=== PATIENT | male | born 1990 | race Caucasian/White ===

== ENCOUNTER 2019-03-12 14:01 | Emergency (ER) | payer BC | END 2019-03-12 15:15 | disposition home or self-care (01) | LOC: JER 14:01 → JERFT 15:15 ==

== ENCOUNTER 2019-05-06 23:16 | Emergency (ER) | payer BC ==
--- NOTE | 2019-05-06 23:50 | PDOC ---
History of Present Illness - General Chief Complaint: Sore Throat Stated Complaint: SORE THROAT Time Seen by Provider: 05/06/19 23:24 - History of Present Illness Initial Comments: 05/06/19 23:46 CHIEF COMPLAINT: sore throat HISTORY OF PRESENT ILLNESS: 28 yo M with hx of asthma presents to ED with sore throat x 1 week. Patient denies sore throat, runny, cough, fever, nausea, vomiting, diarrhea. Patient just reports "soreness" to his throat. Patient has not taken any medication for the discomfort. Patient reports waking up with a stuffy nose in the mornings but otherwise no URI symptoms. No recent travel or sick contacts. PAST MEDICAL HISTORY: asthma FAMILY HISTORY: Denies SOCIAL HISTORY: Denies tobacco, alcohol, illicit drug use. SURGICAL HISTORY: Denies ALLERGIES: peanut REVIEW OF SYSTEMS General/Constitutional: Denies fever or chills. Denies weakness, weight change. HEENT: Sore throat. Denies change in vision. Denies ear pain or discharge. Cardiovascular: Denies chest pain or shortness of breath. Respiratory: Denies cough, wheezing, or hemoptysis. Gastrointestinal: Denies nausea, vomiting, diarrhea or constipation. Denies rectal bleeding. Genitourinary: Denies dysuria, frequency, or change in urination. Musculoskeletal: Denies joint or muscle swelling or pain. Denies neck or back pain. Skin and breasts: Denies rash or easy bruising. Neurologic: Denies headache, vertigo, loss of consciousness, or loss of sensation. PHYSICAL EXAM General Appearance: Well-appearing, appropriately dressed. No apparent distress. HEENT: EOMI, PERRLA, normal ENT inspection, normal voice, TMs normal, pharynx normal. No conjunctival pallor. No photophobia, scleral icterus. Neck: Supple. Trachea midline. No tenderness, rigidity, carotid bruit, stridor , lymphadenopathy, or thyromegaly. Respiratory/Chest: Lungs CTAB. No shortness of breath, chest tenderness, respiratory distress, accessory muscle use. No crackles, rales, rhonchi, stridor , wheezing, dullness Cardiovascular: RRR. S1, S2. No JVD, murmur, bradycardia, tachycardia. Vascular Pulses: Dorsalis-Pedis (R): 2+, Dorsalis-Pedis (L): 2+ Gastrointestinal/Abdominal: Normal bowel sounds. Abdomen soft, non-distended. No tenderness or rebound tenderness. No organomegaly, pulsatile mass, guarding , hernia, hepatomegaly, splenomegaly. Lymphatic: No adenopathy, tenderness. Musculoskeletal/Extremities: Normal inspection. FROM of all extremities, normal capillary refill. Pelvis Stable. No CVA tenderness. No tenderness to extremities, pedal edema, swelling, erythema or deformity. Integumentary: Appropriate color, dry, warm. No cyanosis, erythema, jaundice or rash Neurologic: train controller II-XII intact. Fully oriented, alert. Appropriate mood/affect. Motor strength 5/5. No appreciable EOM palsy, facial droop or sensory deficit. Past History - Past Medical History Allergies/Adverse Reactions: Allergies Allergy/AdvReac Type Severity Reaction Status Date / Time peanut Allergy Verified 05/06/19 23:23 Home Medications: Ambulatory Orders Ibuprofen 800 mg PO Q8H PRN #20 tablet 03/12/19 Loratadine 10 mg PO DAILY #14 tab.rapdis 05/07/19 COPD: No - Suicide/Smoking/Psychosocial Hx Smoking Status: Yes Smoking History: Never smoked Have you smoked in the past 12 months: No Number of Cigarettes Smoked Daily: 4 Information on smoking cessation initiated: No Hx Alcohol Use: No Drug/Substance Use Hx: No Substance Use Type: None Hx Substance Use Treatment: No *Physical Exam - Vital Signs Last Vital Signs Temp Pulse Resp BP Pulse Ox 97.6 F 87 20 143/87 97 05/06/19 23:24 05/06/19 23:24 05/06/19 23:24 05/06/19 23:24 05/06/19 23:24 Medical Decision Making - Medical Decision Making 05/06/19 23:49 28 yo M with hx of asthma presents to ED with sore throat x 1 week. -rapid strep strep negative decadron IM antihistamines f/u with ENT *DC/Admit/Observation/Transfer Diagnosis at time of Disposition: Sore throat - Discharge Dispostion Disposition: HOME Condition at time of disposition: Stable Decision to Admit order: No - Prescriptions Prescriptions: Loratadine 10 mg PO DAILY #14 tab.rapdis - Referrals - Patient Instructions Printed Discharge Instructions: Sore Throat - Post Discharge Activity
[2019-05-06 23:53] VITALS: BP 143/87; PULSE 87; TEMP 97.6; BMI 37.4
[2019-05-07] MEDS ORDERED: DEXAMETHASONE SOD PHOSPHATE 10 MG/1 ML VIAL IM ONE (00:14)
[2019-05-07] MEDS ORDERED: DEXAMETHASONE SOD PHOSPHATE 10 MG/1 ML VIAL ONE (00:21)
== END 2019-05-07 00:36 | disposition home or self-care (01) ==
LOC: JER 23:16
PROC: 3E023GC Introduction of Other Therapeutic Substance into Muscle, Percutaneous Approach (ICD-10-PCS; principal; 2019-05-06)
DX: J02.9 Acute pharyngitis, unspecified (principal)
CPT/HCPCS: 87070; 87077; 87880; 99281-25; J1100

== ENCOUNTER 2019-09-06 06:08 | Day surgery (SDC) | payer BC ==
[2019-09-05 16:10] VITALS: BMI 40.4
--- NOTE | 2019-09-05 18:23 | PREOP ---
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 HISTORY OF PRESENT ILLNESS: This 29-year-old male has had a raspy voice for over one year. It is worsened by voice use and improved with voice rest. He has an associated cough, heartburn, odynophagia and sore throat. He has been avoiding acidic foods and has lost weight. This is aggravated by an episode of bronchitis after which he became hoarse and had trouble speaking for about one month. In April, he had strep throat treated with amoxicillin. He had had a polyp identified on the vocal cords [place] [address] Maciel. More recently, he has undergone videostroboscopy demonstrating a right-sided vocal polyp anteriorly which affects closure on phonation. There were no other lesions identified. In addition, his exam demonstrates nasal polyps and he was found on CT scan to have chronic ethmoid and maxillary sinusitis. There are associated chronic sinus symptoms. He is now admitted for microlaryngoscopy with excision of laryngeal polyp as well as endoscopic sinus surgery and nasal polypectomy with image guidance. PRIMARY Care Provider: Zenobia Tej. PAST MEDICAL HISTORY: He had a medical evaluation which demonstrated a low white blood cell count and he has been evaluated by hematology. PAST SURGICAL HISTORY: Negative except for dental extractions. He has not had general anesthesia although he may have had IV sedation in the past. BLEEDING HISTORY: Negative. FAMILY HISTORY: Negative for bleeding problems. His mother did have anesthesia problems with postoperative vomiting. Family history is also significant for allergies. ALLERGIES TO MEDICATIONS: None known. SOCIAL HISTORY: He does not smoke. CURRENT MEDICATIONS: 1. Fluticasone nasal spray. 2. Omeprazole. PHYSICAL EXAMINATION: GENERAL: The patient is an obese male in no distress. HEENT AND NECK: Head is normal. Eyes are clear. Ears are unremarkable. The nose demonstrates bilateral nasal polyps. The vocal cords show a polyp on the right side which is round and red anteriorly. Vocal cord mobility is good. DATA: Preoperative labs are pending. A CT scan of the paranasal sinuses performed at [facility] on July 25, 2019 shows chronic sinusitis involving the ethmoid cells as well as maxillary sinus disease. There is thickening of the left sphenoethmoid recess. Nasal polyps are demonstrated. There is deformity of the right medial orbital wall consistent with a chronic fracture. There is an incidental small arachnoid cyst found in the right temporal lobe measuring 2.3 x 1.4 cm. IMPRESSION: Vocal polyp with dysphonia, nasal polyps and chronic sinusitis. PLAN: Microlaryngoscopy with excision of vocal polyp, endoscopic sinus surgery to address the ethmoid maxillary sinuses with nasal polypectomy with image guidance. INFORMED CONSENT: The patient and his mother understand the indications, alternatives, nature of the risks and benefits of the proposed surgery, potential complications, including but not limited to anesthesia, bleeding, infection, recurrence of the vocal polyp or nasal polyps, numbness, reduced smell sense, eye injury or brain injury as well as continued or recurrent hoarseness. These were discussed in detail. He understands and accepts these risks and wishes to proceed with surgery. Questions were answered fully. FARHEEN FIGUEROA M.D. [id number] MTDD
[2019-09-06] MEDS ORDERED: LIDOCAINE 1%-EPI 1:100,000 30 ML MDV IJ ONE (07:12)
--- NOTE | 2019-09-06 08:02 | HP ---
History & Physical Update - History History: No Change - Physical Physical: No Change - Assessment Assessment: No Change - Plan Currently as noted:: laser not available today because of equipment issue reported 09-05-19
[2019-09-06] MEDS ORDERED: MIDAZOLAM HCL 2 MG/2 ML SINGLE DOSE VIAL ONE (08:03)
[2019-09-06] MEDS ORDERED: LIDOCAINE HCL/PF 2% SDV 5ML VIAL ONE (08:09)
[2019-09-06] MEDS ORDERED: fentaNYL CITRATE 250 MCG/5 ML VIAL ONE (08:10)
[2019-09-06] MEDS ORDERED: PROPOFOL 20 ML ONE ×2 (08:11)
[2019-09-06] MEDS ORDERED: ROCURONIUM BROMIDE 50 MG/5 ML SYRINGE ONE ×2 (08:13→08:51)
[2019-09-06] MEDS ORDERED: COCAINE HCL 4% TOPICAL SOLUTION 4 ML BOTTLE TP ONE ×2 (08:19→08:30)
[2019-09-06] MEDS ORDERED: DEXAMETHASONE SOD PHOSPHATE 4 MG/1 ML VIAL ONE (08:36)
[2019-09-06] MEDS ORDERED: LIDOCAINE 1%/EPI 1:100000 (20 ML MULTI DOSE VIAL) INF ONE ×2 (09:21)
[2019-09-06] MEDS ORDERED: NEOSTIGMINE METHYLSULFATE 0.5 MG/ML - 10 ML MDV ONE (09:28)
[2019-09-06] MEDS ORDERED: GLYCOPYRROLATE 0.2 MG/1 ML VIAL ONE (09:28)
[2019-09-06] MEDS ORDERED: PHENYLEPHRINE HCL 10 MG/1 ML SINGLE DOSE VIAL ONE (09:38)
[2019-09-06] MEDS ORDERED: BACITRACIN 15 GM TUBE TOPICAL OINTMENT ONE (09:48)
[2019-09-06] MEDS ORDERED: IBUPROFEN 800 MG/8 ML IJ IVPB PRN (10:24)
[2019-09-06] MEDS ORDERED: oxyCODONE HCL 5 MG TABLET PO PRN (10:24)
[2019-09-06] MEDS ORDERED: ACETAMINOPHEN 1000 MG/100 ML VIAL (NON FORMULARY) IVPB ONE ×2 (10:24→10:35)
[2019-09-06] MEDS ORDERED: ONDANSETRON 4 MG/2 ML VIAL IVPUSH PRN (10:24)
[2019-09-06] MEDS ORDERED: LACTATED RINGERS SOLUTION 1,000 ML IV SCH ×2 (10:30)
--- NOTE | 2019-09-06 10:35 | OP ---
Operative Note - Note: Operative Date: 09/06/19 ([id number]) Pre-Operative Diagnosis: vocal cord polyp; chronic ethmoid and maxillary sinusitis with polyps, inferior turbinate hypertrophy Operation: microlaryngoscopy with excision of right vocal cord polyp; bilateral endoscopic ethmoidectomy, anterior and posterior; bilateral endoscopic maxillary antrostomy; bilateral nasal polypectomy, bilateral inferior turbinate therapeutic outfracture and mural cauterization, image guidance Findings: right anterior vocal cord polyp, anterior 1/3, medial surface both cords with changes of chronic laryngitis bilateral nasal polyps, primarily from middle turbinates chronic ethmoid and maxillary sinusitis right lamina papyracea very thin, small defect identified, which was left undisturbed Implants: none Post-Operative Diagnosis: Same as Pre-op Surgeon: Alok Edouard Network Support Technician: Mel Ballard Anesthesia: General Specimens Removed: 1. right vocal cord polyp 2. left nasal polyp and ethmoid tissue, 3. right nasal polyp and ethmoid tissue, 4. right and left ethmoid tissue Estimated Blood Loss (mls): 10 Drains & Tubes with Location: none Blood Volume Replaced (mls): 0 Operative Report Dictated: Yes
--- NOTE | 2019-09-06 10:55 | PN ---
Progress Note (short form) - Note Progress Note: postop check in PACU pt arousable, conversant, mother at bedside pt reports his nasal breathing feels "strong", better EOMI good nasal airflow, no bleeding no stridor or respiratory distress Impression: stable after microlaryngoscopy with excision of nasal polyp, endoscopic sinus surgery, inferior turbinate surgery Plan: continue PACU care to [facility] after discharge home today when meets discharge criteria discussed postop care briefly, take meds, f/u in office 5-6 days as scheduled advised to call office with any questions or concerns. \\ Alok Edouard MD FACS
[2019-09-06] MEDS ORDERED: IBUPROFEN 800 MG/8 ML IJ IVPB ONE ×2 (12:13→12:17)
[2019-09-06 15:00] VITALS: BP 127/87; PULSE 86; TEMP 97.4
--- NOTE | 2019-09-06 18:31 | OP ---
DATE OF OPERATION: 09/06/2019 PREOPERATIVE DIAGNOSIS: Vocal cord polyp, chronic ethmoid and maxillary sinusitis with polyps, inferior turbinate hypertrophy. POSTOPERATIVE DIAGNOSIS: Vocal cord polyp, chronic ethmoid and maxillary sinusitis with polyps, inferior turbinate hypertrophy. PROCEDURE PERFORMED: Suspension microlaryngoscopy with excision of right vocal cord polyp, bilateral endoscopic ethmoidectomy anteriorly and posteriorly, bilateral endoscopic maxillary antrostomy, bilateral nasal polypectomy, bilateral inferior turbinate therapeutic outfracture and mirror cauterization, image guidance. SURGEON: Alok Edouard MD ANESTHESIOLOGIST: Mel Ballard M.D. ANESTHESIA: General via endotracheal tube. INDICATIONS: This 29-year-old male has had history of at least 1 year of hoarseness. He does like to sing and often does karaoke. A vocal cord polyp had been identified approximately 1 year ago, and he has had persistent symptoms since. Recent laryngoscopy demonstrates a small round polyp of the right anterior vocal cord, which intermittently becomes insinuated between the vocal cords upon phonation. In addition, the patient has had bilateral nasal polyps identified. CT scan demonstrates nasal polyps as well as chronic ethmoid and maxillary sinusitis. Inferior turbinate hypertrophy, which is primary soft tissue, is also seen. He is now brought to surgery for treatment. FINDINGS: Right vocal cord polyp, based on the medial surface of the anterior 1/3rd of the right true vocal fold. Both cords had some mucosal changes of chronic laryngitis. Bilateral nasal polyps primarily emanating from the middle turbinates, chronic ethmoid sinusitis and obstruction of the ostiomeatal unit. The right lamina papyracea was very thin with a small defect identified, which was left undisturbed. DESCRIPTION OF PROCEDURE: The patient was brought to the operating room and placed on the operating table in the supine position. General endotracheal anesthesia was induced to a satisfactory level. He was prepped and draped in the usual fashion for surgery. After an appropriate time-out, the table was rotated in preparation for microlaryngoscopy. The upper dentition was protected and a Pilling laryngoscope was passed. The vallecula and the epiglottis were normal. The endolarynx showed normal aryepiglottic folds. There was fullness of the false vocal folds. There were changes of chronic laryngitis in the true vocal folds. A small round polyp was identified near the anterior commissure. Under microscopy, the polyp was manipulated and found to be attached to the medial surface of the right anterior vocal fold in its anterior 1/3rd. This was grasped with the up-biting cup forceps. Microlaryngoscopic scissors were then used to I this along the border of the true vocal fold. This was cleanly excised and sent to Pathology for routine studies. There was minimal oozing. Topical cocaine was applied and excellent hemostasis was achieved. After assuring hemostasis, the pledget was removed. Examination demonstrated excellent symmetry of the vocal folds. The laryngoscope was removed. The upper dentition remained intact. The table was then repositioned, and the patient was prepped and draped for endoscopic sinus surgery. Cocaine 4% was placed topically within the nasal cavities. The patient's CT scan was uploaded into the [employer] System. The patient was registered, and this was used during the case to identify landmarks and guide dissection. After the pledgets were removed, bilateral nasal endoscopy was performed. Bilateral nasal polyps were found in the region of the middle meatus and the middle tuberculosis. Inferior turbinates were enlarged. There was mild septal deviation, which did not require treatment. There was also swelling of the adenoid tissue. Lidocaine 1% with epinephrine 1:100,000 was infiltrated into the visible nasal polyps and lateral nasal scanlon. Additional cocaine 4% was placed within the middle meati. After an adequate time for vasoconstriction, the left paranasal sinus was addressed. Anterior nasal polyps were removed with forceps. These appeared to be coming primarily from the middle turbinate. Additional markedly polypoid tissue was then removed from the middle turbinate using the [employer] microdebrider. The bony middle turbinate was preserved. The middle meatus could be better seen. The uncinate process was drawn forward with the ball-tip seeker, which also identified the natural ostium of the maxillary sinus. The uncinate process was removed. The ethmoid bulla was then opened, and then anterior and then posterior ethmoidectomy was performed using the ethmoid forceps and the [employer] microdebrider. The lamina papyracea and the fovea ethmoidalis were preserved. Hemostasis was excellent. Attention was then turned toward the right paranasal sinuses. Similar nasal polyps were found and removed with forceps. These also appeared to be primarily based upon the right middle turbinate, which was then shaved with the microdebrider and the baseline bony right middle turbinate was preserved. The uncinate process was identified, drawn forward with the ball-tip seeker and removed with the up-biting forceps. The natural ostium of the maxillary sinus was identified and slightly enlarged. There was no pus or polyp. Anterior ethmoidectomy was then performed with the ethmoid forceps and [employer] microdebrider. The posterior ethmoid was also opened. A very thin lamina papyracea was encountered on the right side, and a small defect was identified. A few millimeter area of orbital fat was observed. This was left undisturbed. Final inspection demonstrated middle turbinates and excellent hemostasis. Minor cauterization was performed of the middle turbinates. The inferior turbinates were very large. Therapeutic outfracture was performed with a [place] elevator and mirror cauterization was performed with electrocautery in an island fashion. NasoPore dressing was placed in each ethmoid bed. There was no inferior packing placed. The patient tolerated the procedure well. He was then awakened from general anesthesia and transferred to the PACU in stable condition. Estimated blood loss was 10 mL. He received crystalloid during the procedure. Specimens included: 1. Right vocal cord polyp. 2. Left nasal polyp and ethmoid tissue. 3. Right nasal polyp and ethmoid tissue. 4. Right and left ethmoid tissue. ALOK EDOUARD M.D. [id number]
--- NOTE | 2019-09-11 14:13 | PATH ---
Surgical Pathology Report Patient Name: NISHANT HUDSON [facility]. Rec. #: [id number] /Age/Gender: 1990 (Age: 29) / M Account: [id number] Location: [facility] SURGICAL Taken: 09/06/2019 Received: 09/06/2019 Reported: 09/11/2019 Physicians: Alok Edouard M.D. Specimen(s) Received A: RIGHT VOCAL POLYP B: RIGHT NASAL POLYP C: LEFT NASAL POLYP D: RIGHT AND LEFT ETHMOID TISSUE Clinical History Benign neoplasm of larynx, nasal polyp Final Diagnosis A. VOCAL CORD, POLYP, RIGHT, EXCISION: BENIGN VOCAL CORD POLYP. B. NASAL POLYP AND ETHMOID TISSUE, RIGHT, ENDOSCOPIC ETHMOIDECTOMY, MAXILLARY ANTROSTOMY, POLYPECTOMY: NASAL (INFLAMMATORY) POLYP. BENIGN RESPIRATORY MUCOSA WITH CHRONIC SINUSITIS AND BONE. C. NASAL POLYP AND ETHMOID TISSUE, LEFT, ENDOSCOPIC ETHMOIDECTOMY, MAXILLARY ANTROSTOMY, POLYPECTOMY: NASAL (INFLAMMATORY) POLYP. BENIGN RESPIRATORY MUCOSA WITH CHRONIC SINUSITIS AND BONE. D. ETHMOID TISSUE, RIGHT AND LEFT, ENDOSCOPIC BILATERAL ETHMOIDECTOMY: SCANT RESPIRATORY EPITHELIUM IN A BACKGROUND OF BLOOD. Electronically Signed Sita Ho M.D. Gross Description A. Received in formalin labeled "right vocal cord polyp," is a 0.4 x 0.3 x 0.1 cm allen-brown, polypoid portion of soft tissue. The specimen is submitted in toto in one cassette. B. Received in formalin labeled "right nasal polyp and ethmoid tissue," is a 1.2 x 0.8 x 0.3 cm allen, polypoid portion of soft tissue. Also received within the same container is a 1.3 x 1.3 x 0.2 cm aggregate of allen soft tissue, cartilage and possible bone fragments. The specimen is submitted entirely in 2 cassettes as follows: 1-polyp; 2-remaining tissue, following decalcification. C. Received in formalin labeled "left nasal polyp and ethmoid tissue," is a 1.4 x 0.6 x 0.2 cm allen, polypoid portion of soft tissue. Also received within the same container is a 1.7 x 1.3 x 0.2 cm aggregate of allen soft tissue, cartilage and possible bone fragments. The specimen is submitted entirely in 2 cassettes as follows: 1-polyp; 2-remaining tissue, following decalcification. D. Received in formalin labeled "right and left ethmoid tissue," is a 1.5 x 0.8 x 0.1 cm aggregate of allen-brown tissue fragments admixed with blood clot. The formalin is filtered and the specimen is entirely submitted in one cassette. 09/07/201909/07/2019
== END 2019-09-06 15:21 | disposition home or self-care (01) ==
LOC: JASU-SURG 06:08
PROVIDERS: ATTEND Otolaryngology
PROC: 09BK0ZX Excision of Nasal Mucosa and Soft Tissue, Open Approach, Diagnostic (ICD-10-PCS; 2019-09-06)
PROC: 09TV8ZZ Resection of Left Ethmoid Sinus, Via Natural or Artificial Opening Endoscopic (ICD-10-PCS; 2019-09-06)
PROC: 09TU8ZZ Resection of Right Ethmoid Sinus, Via Natural or Artificial Opening Endoscopic (ICD-10-PCS; 2019-09-06)
PROC: 099R8ZZ Drainage of Left Maxillary Sinus, Via Natural or Artificial Opening Endoscopic (ICD-10-PCS; 2019-09-06)
PROC: 099Q8ZZ Drainage of Right Maxillary Sinus, Via Natural or Artificial Opening Endoscopic (ICD-10-PCS; 2019-09-06)
PROC: 09SL7ZZ Reposition Nasal Turbinate, Via Natural or Artificial Opening (ICD-10-PCS; 2019-09-06)
PROC: 0CBT8ZZ Excision of Right Vocal Cord, Via Natural or Artificial Opening Endoscopic (ICD-10-PCS; principal; 2019-09-06 08:00)
DX: J38.1 Polyp of vocal cord and larynx (principal); J32.2 Chronic ethmoidal sinusitis; J32.0 Chronic maxillary sinusitis; J34.3 Hypertrophy of nasal turbinates; J33.9 Nasal polyp, unspecified
CPT/HCPCS: 88304-TC; 88305-TC; 88311-TC; 94760; J0131

== ENCOUNTER 2022-01-28 06:43 | Emergency (ER) | payer OTHER ==
[2022-01-28 07:06] VITALS: BP 121/88; PULSE 93; TEMP 98.1; BMI 37.8
[2022-01-28] MEDS ORDERED: KETOROLAC TROMETHAMINE 30 MG/1 ML VIAL IM ONE (08:25)
[2022-01-28] MEDS ORDERED: LIDOCAINE 5% TOPICAL PATCH TP ONE (08:25)
[2022-01-28] MEDS ORDERED: LIDOCAINE 5% TOPICAL PATCH ONE (08:35)
[2022-01-28] MEDS ORDERED: KETOROLAC TROMETHAMINE 30 MG/1 ML VIAL ONE (08:35)
== END 2022-01-28 09:30 | disposition home or self-care (01) ==
LOC: JER 06:43
PROC: 3E0234Z Introduction of Serum, Toxoid and Vaccine into Muscle, Percutaneous Approach (ICD-10-PCS; principal; 2022-01-28)
DX: M54.50 Low back pain, unspecified (principal)
CPT/HCPCS: 72100-TC-FY; 99284-25

== ENCOUNTER 2024-05-16 13:48 | Emergency (ER) | payer BC, OTHER ==
[2024-05-16 13:53] VITALS: BP 143/90; PULSE 76; RESP 16; TEMP 98.4
[2024-05-16 14:10] VITALS: BMI 22.8
[2024-05-16 15:52] LABS: HIV INTERPRETATION NEGATIVE (NEGATIVE)
== END 2024-05-16 14:32 | disposition home or self-care (01) ==
LOC: JERFT 13:48
DX: Z20.2 Contact with and (suspected) exposure to infections with a predominantly sexual mode of transmission (principal)
CPT/HCPCS: 36415; 86780; 87389; 87491; 87591; 87661; 99283-25

== ENCOUNTER 2024-06-25 13:42 | Emergency (ER) | payer BC ==
[2024-06-25 14:00] VITALS: BP 143/90; PULSE 69; RESP 20; TEMP 98.7; BMI 35.6
[2024-06-25] MEDS ORDERED: DEXAMETHASONE 4 MG TABLET (FP) ONE (15:19)
[2024-06-25] MEDS: DEXAMETHASONE 4 MG TABLET (FP) PO ONE (15:23)
== END 2024-06-25 15:52 | disposition home or self-care (01) ==
LOC: JER 13:42
DX: R05.9 Cough, unspecified (principal); J02.9 Acute pharyngitis, unspecified; J06.9 Acute upper respiratory infection, unspecified; Z20.822 Contact with and (suspected) exposure to COVID-19
CPT/HCPCS: 0241U-QW; 71046-TC-FY; 99283-25

== ENCOUNTER 2025-03-08 14:00 | Emergency (ER) | payer BC ==
[2025-03-08 14:13] VITALS: BP 113/79; PULSE 77; RESP 20; TEMP 97.8; BMI 36.6
[2025-03-08] MEDS ORDERED: TETRACAINE 0.5% OPHTH SOLN 2 ML BOTTLE ONE (14:39)
[2025-03-08] MEDS ORDERED: FLUORESCEIN NA 1 EA STRIP ONE (14:39)
[2025-03-08] MEDS ORDERED: ACETAMINOPHEN INJECTION 100 ML ONE (14:42)
[2025-03-08] MEDS: ACETAMINOPHEN 1000 MG/100 ML BAG IVPB ONE (15:07)
[2025-03-08] MEDS: SODIUM CHLORIDE 0.9% 500 ML INFUS.BAG IV ONE (15:07)
[2025-03-08 15:10] LABS: ABSOLUTE IMMATURE GRANULOCYTES 0.02 x10^3/uL (0.0-0.031); BASOPHILS # 0.11 x10^3/uL (0.01-0.08); EOSINOPHIL % 2.4 % (0.8-7.0); EOSINOPHILS # 0.21 x10^3/uL (0.04-0.54); HEMATOCRIT 45.6 % (40.1-51.0); HEMOGLOBIN 15.3 g/dL (13.7-17.5); MCHC 33.6 g/dl (32.3-36.5); MEAN CELL VOLUME 91.6 fl (79.0-92.2); MEAN PLT VOLUME 9.9 fl (9.4-12.4); MONOCYTE # 0.55 x10^3/uL (0.30-0.82); MONOCYTE % 6.4 % (5.3-12.2); PLATELET COUNT 358 x10^3/uL (163-337); RDW 12.1 % (12.0-15.6)
[2025-03-08 15:27] LABS: POTASSIUM 4.6 mmol/L (3.5-5.1)
[2025-03-08 15:29] LABS: ALBUMIN 4.1 g/dl (3.4-5.0); BLOOD UREA NITROGEN 12.4 mg/dL (7-18)
[2025-03-08 15:32] LABS: CREATININE 0.8 mg/dL (0.55-1.3)
[2025-03-08 15:34] LABS: BILIRUBIN,TOTAL 0.5 mg/dL (0.2-1); TOT PROT 7.7 g/dl (6.4-8.2)
[2025-03-08 17:10] LABS: EPI CELLS 2 /uL (0-25.1); HYALINE CASTS 0 /uL (0-3.1); PH,URINE 5.5 (5.0-8.0); URINE APPEARANCE Clear; URINE BACTERIA 12 /uL (0-1359); URINE BILIRUBIN Negative (NEGATIVE); URINE COLOR Yellow; URINE GLUCOSE (UA) Negative (NEGATIVE); URINE KETONE Negative (NEGATIVE); URINE LEUK ESTERASE Negative (NEGATIVE); URINE NITRITE Negative (NEGATIVE); URINE PROTEIN Negative (NEGATIVE); URINE RBC 43 /uL (0-23.9); URINE UROBILINOGEN 0.2 mg/dL (0.2-1.0); URINE WBC 4 /uL (0-25.8)
== END 2025-03-08 17:53 | disposition home or self-care (01) ==
LOC: JER 14:00
PROC: 3E033NZ Introduction of Analgesics, Hypnotics, Sedatives into Peripheral Vein, Percutaneous Approach (ICD-10-PCS; principal; 2025-03-08)
DX: K52.9 Noninfective gastroenteritis and colitis, unspecified (principal); R14.0 Abdominal distension (gaseous); R10.9 Unspecified abdominal pain
CPT/HCPCS: 36415; 74177-TC; 80053; 81003; 85025; 87086; 99285-25; J0131; Q9967